=== PATIENT | female | born 1960 | race Caucasian/White ===

== ENCOUNTER 2016-11-06 14:35 | Emergency (ER) | payer BC ==
[2016-11-06] MEDS ORDERED: LORazepam 2 MG/ML SYRINGE IV STA (15:35)
[2016-11-06] MEDS ORDERED: hydrALAZINE HCL 20 MG/ML 1 ML VIAL IVP STA (15:35)
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
[2016-11-06 15:47] LABS: Basophils # (A) 0.1 k/uL (0-0.2); Basophils % (A) 1 %; CH 31.7; CHCM 33.4; Eosinophils # (A) 0.3 k/uL (0-0.7); Eosinophils % (A) 3 %; HDW 2.38; HGB 15.5 gm/dL (11.4-16.0); Luc % (Auto) 3; Lymphocytes # (A) 2.2 k/uL (1.0-4.8); Lymphocytes % (A) 28 %; MCH 31.5 pg (25.0-35.0); MCHC 33.1 g/dL (31.0-37.0); MCV 95.3 fL (80.0-100.0); Mean Platelet Volume 7.3; Monocytes # (A) 0.4 k/uL (0-1.0); Monocytes % (A) 4 %; Neutrophils # (A) 4.9 k/uL (1.3-7.7); Neutrophils % (A) 62 %; RBC 4.93 m/uL (3.80-5.40); RDW 12.7 % (11.5-15.5); WBC (Perox) 7.92
[2016-11-06 15:56] LABS: ALT 22 U/L (9-52); AST 21 U/L (14-36); Alkaline Phosphatase 91 U/L (38-126); Anion Gap 13 mmol/L; Blood Urea Nitrogen 14 mg/dL (7-17); Calcium 10.2 mg/dL (8.4-10.2); Carbon Dioxide 26 mmol/L (22-30); Chloride 104 mmol/L (98-107); Glucose 100 mg/dL (74-99); Magnesium 2.1 mg/dL (1.6-2.3); Non-African American GFR(MDRD) >60 (>60 ml/min/1.73 sqM); Potassium 4.2 mmol/L (3.5-5.1); Sodium 143 mmol/L (137-145); Total Bilirubin 0.6 mg/dL (0.2-1.3); Total Protein 8.5 g/dL (6.3-8.2)
[2016-11-06 15:57] LABS: INR 1.1 (<1.1); Partial Thromboplastin Time 24.5 sec (22.0-30.0); Prothrombin Time 10.9 sec (9.0-12.0)
[2016-11-06 16:07] LABS: Creatine Kinase 55 U/L (30-135)
[2016-11-06 16:07] LABS: Appearance,Urine Clear (Clear); Bilirubin,Urine Negative (Negative); Glucose,Urine (UA) Negative (Negative); Ketones,Urine Trace (Negative); Leukocyte Esterase,Urine Negative (Negative); Nitrite,Urine Negative (Negative); Protein,Urine Negative (Negative); Specific Gravity,Urine 1.004 (1.001-1.035); UA Billing (MACRO vs. MICRO) CHEM; Urobilinogen,Urine <2.0 mg/dL (<2.0)
[2016-11-06 16:21] LABS: Creatine Kinase MB 0.7 ng/mL (0.0-2.4); Troponin I <0.012 ng/mL (0.000-0.034)
--- NOTE | 2016-11-06 16:26 | XR ---
EXAMINATION TYPE: XR chest 2V DATE OF EXAM: 11/06/2016 4:07 PM COMPARISON: 02/15/2012 HISTORY: Shortness of breath TECHNIQUE: Frontal and lateral views of the chest are obtained. FINDINGS: Scattered senescent parenchymal changes noted. Hyperinflation compatible with COPD. No evidence for infiltrate. No evidence for atelectasis. Heart size is stable. Mediastinal structures are stable and grossly unremarkable. No evidence for hilar prominence. Degenerative changes dorsal spine. IMPRESSION: 1. No evidence for acute pulmonary disease.
[2016-11-06 17:34] VITALS: BP 153/78; PULSE 78; RESP 16; TEMP 97.8
== END 2016-11-06 17:31 | disposition home or self-care (01) ==
LOC: EC 14:35
DX: J32.9 Chronic sinusitis, unspecified (principal); R19.7 Diarrhea, unspecified; R10.9 Unspecified abdominal pain; F17.200 Nicotine dependence, unspecified, uncomplicated; Z79.899 Other long term (current) drug therapy; Z88.2 Allergy status to sulfonamides
CPT/HCPCS: 99284; 96374; 96375; 36415; 93005; 80053; 82550; 82553; 83735; 84484; 85025; 85610; 85730; 81003; 71020; J2060; J0360

== ENCOUNTER 2016-11-29 09:39 | Observation (INO) | payer BC ==
[2016-11-29] MEDS ORDERED: ASPIRIN 325 MG TAB PO STA (10:34)
[2016-11-29] MEDS ORDERED: SODIUM CHLORIDE 0.9% 1,000 ML IV ONE (10:34)
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
[2016-11-29 11:34] LABS: Appearance,Urine Clear (Clear); Bilirubin,Urine Negative (Negative); Glucose,Urine (UA) Negative (Negative); Ketones,Urine Negative (Negative); Leukocyte Esterase,Urine Negative (Negative); Nitrite,Urine Negative (Negative); Protein,Urine Negative (Negative); Specific Gravity,Urine 1.004 (1.001-1.035); UA Billing (MACRO vs. MICRO) CHEM; Urobilinogen,Urine <2.0 mg/dL (<2.0)
[2016-11-29 11:36] LABS: Basophils % (A) 1 %; CH 31.3; CHCM 33.1; Eosinophils # (A) 0.2 k/uL (0-0.7); Eosinophils % (A) 3 %; HCT 48.4 % (34.0-46.0); HDW 2.28; HGB 15.9 gm/dL (11.4-16.0); Luc # (Auto) 0.18; Luc % (Auto) 3; Lymphocytes # (A) 1.6 k/uL (1.0-4.8); Lymphocytes % (A) 25 %; MCH 31.2 pg (25.0-35.0); MCHC 32.8 g/dL (31.0-37.0); MCV 95.2 fL (80.0-100.0); Mean Platelet Volume 6.6; Monocytes # (A) 0.4 k/uL (0-1.0); Monocytes % (A) 6 %; Neutrophils # (A) 3.9 k/uL (1.3-7.7); Neutrophils % (A) 62 %; RBC 5.08 m/uL (3.80-5.40); RDW 12.2 % (11.5-15.5); WBC 6.3 k/uL (3.8-10.6); WBC (Perox) 6.11
--- NOTE | 2016-11-29 11:49 | XR ---
EXAMINATION TYPE: XR chest 2V DATE OF EXAM: 11/29/2016 11:45 AM COMPARISON: Chest x-ray November 06, 2016. HISTORY: Hypertension with chest pain. TECHNIQUE: Frontal and lateral views of the chest are obtained. FINDINGS: There is no focal air space opacity, pleural effusion, or pneumothorax seen. The cardiac silhouette size is within normal limits. The osseous structures are intact. IMPRESSION: No acute process. No significant change from prior.
[2016-11-29 11:58] LABS: ALT 21 U/L (9-52); AST 19 U/L (14-36); Alkaline Phosphatase 80 U/L (38-126); Anion Gap 10 mmol/L; Blood Urea Nitrogen 13 mg/dL (7-17); Calcium 9.9 mg/dL (8.4-10.2); Carbon Dioxide 27 mmol/L (22-30); Chloride 105 mmol/L (98-107); Glucose 88 mg/dL (74-99); Non-African American GFR(MDRD) >60 (>60 ml/min/1.73 sqM); Potassium 5.1 mmol/L (3.5-5.1); Sodium 142 mmol/L (137-145); Total Bilirubin 0.6 mg/dL (0.2-1.3); Total Protein 7.4 g/dL (6.3-8.2)
[2016-11-29 12:50] VITALS: RESP 18
[2016-11-29] MEDS ORDERED: MORPHINE SULFATE 4 MG/ML SYRINGE IV PRN (13:51)
[2016-11-29] MEDS ORDERED: ONDANSETRON 4 MG/2 ML VIAL IVP PRN (13:51)
[2016-11-29] MEDS ORDERED: NALOXONE 0.4 MG/ML 1 ML VIAL IV PRN (13:51)
[2016-11-29] MEDS: KETOROLAC 30 MG/ML 1 ML VIAL IVP PRN ×2 (14:28→23:40)
[2016-11-29] MEDS ORDERED: HYDROcodone/APAP 5-325MG 1 EACH TAB PO PRN (16:05)
[2016-11-29] MEDS ORDERED: TEMAZEPAM 15 MG CAP PO PRN (16:05)
[2016-11-29] MEDS: METOPROLOL TARTRATE 12.5 MG TAB PO SCH ×2 (17:18→23:41)
[2016-11-29] MEDS: NICOTINE 14MG/24HR PATCH TRANSDERM SCH (17:24)
--- NOTE | 2016-11-29 19:28 | HP ---
DATE OF ADMISSION: 11/29/2016 CHIEF COMPLAINT: Palpitations, hypertension. HISTORY OF PRESENT ILLNESS: This 56-year-old woman with a past medical history of multiple medical problems, including hypertension, history of cervical cancer, history of DJD, anxiety, depression, being followed by Dr. Calix in the outpatient setting, was not feeling well over the past several days. The patient is complaining of tiredness, weakness and palpitations. The patient felt chest fullness, also. The patient came to [facility] and was admitted for further evaluation. Patient was also found to have elevated blood pressure; systolic was 172/77. There is no history of any fever, rigor, or chills at this time. PAST MEDICAL HISTORY: 1. History of hypertension. 2. History of cervical cancer. 3. History of DJD. 4. Anxiety. 5. Depression. Medications prior to admission include: 1. Prozac 10 mg daily. 2. Coreen 180 mg daily. ALLERGIES: 1. BACTRIM. 2. SULFA. FAMILY HISTORY: History of hypertension in father. History of cardiac stent in mother. SOCIAL HISTORY: Occasional alcohol intake. History of smoking. REVIEW OF SYSTEMS: ENT: No diminished vision. No diminished hearing. CARDIOVASCULAR: As mentioned earlier. RESPIRATORY: As mentioned earlier. GI: No nausea. : No dysuria. NERVOUS SYSTEM: No numbness, weakness. ALLERGY/IMMUNOLOGY: No asthma, hayfever. MUSCULOSKELETAL: As mentioned earlier. HEMATOLOGY/ONCOLOGY: No history of anemia. Otherwise as mentioned earlier. ENDOCRINE: No history of diabetes, hypothyroidism. CONSTITUTIONAL: As mentioned earlier. MUSCULOSKELETAL: Negative. ENDOCRINE: No diabetes mellitus. PSYCHIATRY: As mentioned earlier. PHYSICAL EXAMINATION: Patient alert and oriented x3. Pulse is 60, blood pressure 164/76, respiration 18, temperature 98.7, pulse ox 100% on room air. HEENT: Conjunctivae normal. Oral mucosa moist. NECK: No jugular venous distention. No carotid bruit. No lymph node enlargement. CARDIOVASCULAR SYSTEM: S1, S2 muffled. No S3. No S4. RESPIRATORY SYSTEM: Breath sounds diminished at the bases. A few rhonchi. No crackles. ABDOMEN: Soft, non-tender. No mass palpable. LEGS: No edema. No swelling. NERVOUS SYSTEM: Higher functions as mentioned earlier. Moves all 4 limbs. No focal motor or sensory deficit. LYMPHATICS: No lymph node palpable in neck, axillae or groin. SKIN: No ulcer, rash, bleeding. LABS: CBC, BMP within normal limits. UA is negative. ASSESSMENT: 1. Hypertension. 2. Palpitations and chest discomfort for evaluation. 3. Anxiety, depression not otherwise specified. 4. History of degenerative joint disease. 5. History of hypertension. 6. History of cervical cancer. 7. History of nicotine dependence. RECOMMENDATIONS AND DISCUSSION: In this 56-year-old woman who presented with multiple complex medical issues, at this time I recommend to continue current medications, continue symptomatic treatment. I recommend beta blockers. Closely follow with Cardiology. Otherwise, guarded prognosis because of multiple complex medical issues. Further recommendations to follow. I would also recommend a psychiatric consult. I would also recommend the patient to follow up closely with Dr. Calix in the outpatient setting. Medication reconciliation was done. Please see orders for further details.
[2016-11-29] MEDS: HEPARIN SODIUM,PORCINE 5,000 UNIT/ML 1 ML VIAL SQ SCH (22:03)
[2016-11-29] MEDS: ALPRAZolam 0.25 MG TAB PO PRN (23:40)
[2016-11-30 07:07] LABS: Basophils # (A) 0.1 k/uL (0-0.2); Basophils % (A) 1 %; CH 31.2; CHCM 32.9; Eosinophils # (A) 0.4 k/uL (0-0.7); Eosinophils % (A) 7 %; HCT 42.5 % (34.0-46.0); HGB 13.9 gm/dL (11.4-16.0); Luc # (Auto) 0.22; Luc % (Auto) 4; Lymphocytes # (A) 2.8 k/uL (1.0-4.8); Lymphocytes % (A) 48 %; MCH 31.2 pg (25.0-35.0); MCHC 32.7 g/dL (31.0-37.0); MCV 95.2 fL (80.0-100.0); Monocytes # (A) 0.3 k/uL (0-1.0); Monocytes % (A) 5 %; Neutrophils % (A) 35 %; RBC 4.46 m/uL (3.80-5.40); RDW 12.3 % (11.5-15.5); WBC 5.8 k/uL (3.8-10.6); WBC (Perox) 5.83
[2016-11-30 07:24] LABS: Anion Gap 7 mmol/L; Blood Urea Nitrogen 11 mg/dL (7-17); Calcium 9.3 mg/dL (8.4-10.2); Carbon Dioxide 25 mmol/L (22-30); Chloride 108 mmol/L (98-107); Cholesterol 157 mg/dL (<200); Glucose 80 mg/dL (74-99); HDL Cholesterol 62 mg/dL (40-60); Non-African American GFR(MDRD) >60 (>60 ml/min/1.73 sqM); Potassium 4.9 mmol/L (3.5-5.1); Sodium 140 mmol/L (137-145); Triglycerides 79 mg/dL (<150)
[2016-11-30] MEDS: NICOTINE 14MG/24HR PATCH TRANSDERM SCH (08:26)
[2016-11-30] MEDS: LORATADINE 10 MG TAB PO SCH (08:27)
[2016-11-30] MEDS: METOPROLOL TARTRATE 12.5 MG TAB PO SCH ×2 (08:27→21:48)
[2016-11-30] MEDS: HEPARIN SODIUM,PORCINE 5,000 UNIT/ML 1 ML VIAL SQ SCH ×2 (08:27→21:48)
[2016-11-30] MEDS ORDERED: FLUoxetine HCL 10 MG CAP PO SCH (09:00)
[2016-11-30 09:43] VITALS: BMI 21.5
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
[2016-11-30] MEDS: ALPRAZolam 0.25 MG TAB PO PRN (21:48)
[2016-11-30] MEDS: KETOROLAC 30 MG/ML 1 ML VIAL IVP PRN (22:54)
[2016-12-01] MEDS: NICOTINE 14MG/24HR PATCH TRANSDERM SCH (07:49)
[2016-12-01] MEDS: LORATADINE 10 MG TAB PO SCH (07:50)
[2016-12-01] MEDS: HEPARIN SODIUM,PORCINE 5,000 UNIT/ML 1 ML VIAL SQ SCH (07:50)
[2016-12-01] MEDS: METOPROLOL TARTRATE 12.5 MG TAB PO SCH (07:50)
[2016-12-01] MEDS ORDERED: ESCITALOPRAM 10 MG TAB PO SCH (09:00)
--- NOTE | 2016-12-01 09:39 | PN ---
DATE OF SERVICE: 11/30/2016 This 56-year-old woman who was admitted with palpitations and hypertension also had some significant depression also. Cardiology is following the patient closely. Medication adjusted. 2D echo has been ordered. Patient is on low dose beta blockers. On exam, alert and oriented times three. Pulse 61. Blood pressure 130/78, respiratory rate 18, temperature 97.0, pulse ox 98% on room air. HEENT: Conjunctivae normal. NECK: No jugular venous distention. CARDIOVASCULAR: S1, S2 muffled. RESPIRATORY: Breath sounds diminished at the bases. No rhonchi, no crackles. ABDOMEN: Soft. Nontender. LEGS: No edema. No swelling. Labs are CBC within normal limits, CMP with 62. ASSESSMENT: 1. Hypertension. 2. Palpitations and chest discomfort for evaluation rule out coronary artery disease. 3. Anxiety, depression, not otherwise specified. 4. History of degenerative joint disease. 5. Hypertension. 6. History of cervical cancer. 7. History of nicotine dependence. RECOMMENDATIONS AND DISCUSSION: At this time, recommend to continue current medications. Continue to monitor. Symptomatic treatment. Otherwise, closely follow up. Continue the beta blockers. Closely follow with cardiology and psychiatric evaluation appreciated. CELINE
[2016-12-01 13:16] VITALS: BP 117/61; PULSE 55; TEMP 97.1
--- NOTE | 2016-12-01 14:16 | P.PN ---
Progress Note - Text Interval history: Patient was seen for psychiatric follow-up ,was laying in her bed . She states that she is less anxious ,hoping to be discharged soon , discussed healthy coping skills to deal with ongoing stressor Mental status exam: She is alert and cooperative with the interview. Her affect is appropriate ,smiling at times Her speech is spontaneous and coherent Her mood is BETTER""She denies any thoughts of harm to self or others. She denies any hallucinations. There is no evidence of any active psychosis or wily,insight and judgment good Plan: Continue current medication ,was referred to her therapist at [facility] ,please discharge when medically cleared
--- NOTE | 2016-12-01 15:02 | P.PN ---
Subjective Principal diagnosis: Palpitations This is a pleasant 56-year-old female patient with past medical history of pre- eclampsia during her first , anxiety and depression for which she was recently started on fluoxetine, cervical cancer and recent diagnosis of hypertension for which she has not been prescribed any antihypertensive agents. Was seen in the emergency department earlier this month and noted to be hypertensive. He has not been on any medication for hypertension. Presents for complaints of high blood pressure, palpitations, weakness, fatigue, change in bowel movements with alternating constipation and diarrhea. Blood pressure upon presentation to the emergency room 160s to 190 systolic. EKG on admission showed normal sinus rhythm. Patient continues to be in normal sinus rhythm. Blood pressure today is stable. TSH level is normal. Arrangements are being made for possible discharge home, echocardiogram with Doppler study remains pending. When the patient is discharged home we will recommend an event monitor as an outpatient. Objective - Vital Signs Vital signs: Vital Signs Temp 97.1 F L 12/01/16 11:00 Pulse 55 L 12/01/16 11:00 Resp 18 12/01/16 11:00 BP 117/61 12/01/16 11:00 Pulse Ox 98 12/01/16 11:00 Intake & Output 11/30/16 12/01/16 12/01/16 18:59 06:59 18:59 Intake Total 480 800 922 Balance 480 800 922 Weight 53.4 kg 51.5 kg Intake: Oral 480 800 922 Other: Voiding Method Toilet Toilet Toilet # Voids 1 - Exam PHYSICAL EXAMINATION: HEENT: Head is atraumatic, normocephalic. Pupils equal, round. Neck is supple. There is no elevated jugular venous pressure. HEART EXAMINATION: Heart S1, S2 normal. No murmur or gallop heard. CHEST EXAMINATION: Lungs are clear to auscultation and precussion. No chest wall tenderness is noted on palpation or with deep breathing. ABDOMEN: Soft, nontender. Bowel sounds are heard. No organomegaly noted. EXTREMITIES: 2+ peripheral pulses with no evidence of peripheral edema and no calf tenderness noted. NEUROLOGIC patient is awake, alert and oriented -3. . - Labs CBC & Chem 7: 11/30/16 06:36 11/30/16 06:34 Assessment and Plan Plan: Assessment and Plan Plan: Assessment and plan #1 hypertension #2 palpitations #3 recent change in bowel movements with alternating constipation and diarrhea and 5 pound weight loss, PCP is scheduling patient for a colonoscopy #4 anxiety and depression, recently started on fluoxetine #5 history of cervical cancer Plan Cardiology's perspective, patient may be able to be discharged once cleared by the primary. We will recommend an event monitor on discharge. A follow-up appointment will also be made in the office post discharge. DNP note has been reviewed, I agree with a documented findings and plan of care. Patient was seen and examined.
--- NOTE | 2016-12-01 17:20 | DS ---
DATE OF ADMISSION: 11/29/2016 DATE OF DISCHARGE: 12/01/2016 FINAL DIAGNOSES: 1. Hypertension. 2. Palpations chest, myocardial infarction ruled out, rule out coronary artery disease. 3. Anxiety, depression, not otherwise specified. 4. History of degenerative joint disease . 5. History of hypertension. 6. History of cervical cancer. 7. History of nicotine dependence. DISCHARGE DISPOSITION: The patient will be discharged in a stable discharge with guarded prognosis. Discharge cleared by multiple consultants. HISTORY OF PRESENT ILLNESS: This 56-year-old woman with a past medical history of multiple medical problems, admitted with hypertension, palpitations. The patient was treated symptomatically, myocardial infarction ruled out, cardiology recommended outpatient follow-up and Dr. Ku from psych also saw the patient. On exam, vital signs stable. CARDIOVASCULAR: S1, S2. CENTRAL NERVOUS SYSTEM: No focal deficits. ABDOMEN: Soft. DISCHARGE MEDICATIONS AND DISCHARGE ADVICE: 1. Diet is cardiac. 2. Activity limited until follow-up. 3. Follow up with Dr. Calix in 2 to 3 days. 4. Follow-up with Dr. Null as advised in the outpatient setting. 5. Medications Xanax 0.25 t.i.d. p.r.n. 6. Tylenol 500 mg q.6 p.r.n. for pain. 7. Lexapro 10 mg p.o. daily. 8. Fexofenadine 180 mg p.o. daily. 9. Lopressor 12.5 mg p.o. b.i.d. 10. Habitrol 14 daily. Once again, the patient will be discharged in stable condition with guarded prognosis.
--- NOTE | 2016-12-02 11:31 | ECHOF ---
Referral Reason:palpitations MEASUREMENTS -------- HEIGHT: 157.5 cm WEIGHT: 53.1 kg BP: 123/60 RVIDd: 2.8 cm (< 3.3) IVSd: 1.1 cm (0.6 - 1.1) LVIDd: 3.7 cm (3.9 - 5.3) LVPWd: 1.1 cm (0.6 - 1.1) IVSs: 1.5 cm LVIDs: 2.6 cm LVPWs: 1.4 cm LA Diam: 2.6 cm (2.7 - 3.8) LAESV Index (A-L): 21.31 ml/m Ao Diam: 2.8 cm (2.0 - 3.7) AV Cusp: 1.8 cm (1.5 - 2.6) MV EXCURSION: 14.946 mm (> 18.000) MV EF SLOPE: 120 mm/s (70 - 150) EPSS: 0.4 cm MV E Zaheer: 0.99 m/s MV DecT: 175 ms MV A Zaheer: 0.76 m/s MV E/A Ratio: 1.31 FINDINGS -------- Sinus rhythm. This was a technically good study. The left ventricular size is normal. Left ventricular wall thickness is normal. Overall left ventricular systolic function is normal with, an EF between 55 - 60 %. The right ventricle is normal in size. Normal LA size by volume 22+/-6 ml/m2. The right atrium is normal in size. The aortic valve is trileaflet and appears structurally normal. The mitral valve is normal. Mild mitral regurgitation is present. The tricuspid valve appears structurally normal. No regurgitation noted There is no pulmonic regurgitation present. The aortic root size is normal. Normal inferior vena cava with normal inspiratory collapse consistent with estimated right atrial pressure of 5 mmHg. There is no pericardial effusion. CONCLUSIONS -------- 1. Sinus rhythm. 2. Normal inferior vena cava with normal inspiratory collapse consistent with estimated right atrial pressure of 5 mmHg. 3. There is no pericardial effusion. 4. This was a technically good study. 5. Left ventricular wall thickness is normal. 6. Normal LA size by volume 22+/-6 ml/m2. 7. The aortic valve is trileaflet and appears structurally normal. 8. Mild mitral regurgitation is present. 9. The tricuspid valve appears structurally normal. 10. There is no pulmonic regurgitation present. 11. The aortic root size is normal. BOARD CERTIFIED ORTHODONTIST: Izabel Dash RDCS
== END 2016-12-01 15:58 | disposition home or self-care (01) ==
LOC: EC 09:39 → 6SEL 13:51
PROVIDERS: ADMIT Internal Medicine; ATTEND Internal Medicine
DX: I10 Essential (primary) hypertension (principal); R00.2 Palpitations; R07.89 Other chest pain; K59.00 Constipation, unspecified; R19.7 Diarrhea, unspecified; R63.4 Abnormal weight loss; F32.9 Major depressive disorder, single episode, unspecified; Z79.899 Other long term (current) drug therapy; Z88.2 Allergy status to sulfonamides; F17.200 Nicotine dependence, unspecified, uncomplicated; Z82.49 Family history of ischemic heart disease and other diseases of the circulatory system; Z85.41 Personal history of malignant neoplasm of cervix uteri; F41.0 Panic disorder [episodic paroxysmal anxiety]; M19.90 Unspecified osteoarthritis, unspecified site; R09.81 Nasal congestion; R35.0 Frequency of micturition; R53.1 Weakness; F43.29 Adjustment disorder with other symptoms
CPT/HCPCS: 96374 ×2; 96361 ×2; 99284 ×2; 36415; 93005; 93306; 83880; 80061; 80053; 80048; 84443; 83690; 84484 ×2; 85025 ×2; 81003; 80306; 87502; 71020; G0378 ×3; J1644 ×3; J1885 ×2; 96372; 96376

== ENCOUNTER → 2016-12-02 | Outpatient (CLI) | payer BC ==
--- NOTE | 2016-12-03 09:39 | MM ---
Reason for exam: screening (asymptomatic). Last mammogram was performed 2 years and 9 months ago. History: Patient is postmenopausal. Physical Findings: A clinical breast exam by your physician is recommended on an annual basis and results should be correlated with mammographic findings. MG Screening Mammo w CAD Bilateral CC and MLO view(s) were taken. Prior study comparison: March 14, 2014, bilateral MG screening mammo w CAD. The breast tissue is heterogeneously dense. This may lower the sensitivity of mammography. Finding: There are typically benign calcifications in both breasts. There is a chronic nodularity in the right breast. ASSESSMENT: Benign, BI-RAD 2 RECOMMENDATION: Routine screening mammogram of both breasts in 1 year.
== END | disposition home or self-care (01) ==
LOC: RADECHMAIN 13:02
PROVIDERS: ATTEND Family Medicine
DX: Z12.31 Encounter for screening mammogram for malignant neoplasm of breast (principal)
CPT/HCPCS: 93225; 93226; G0202

== ENCOUNTER 2018-06-20 23:14 | Emergency (ER) | payer BC ==
[2018-06-20 23:27] VITALS: TEMP 97.7
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
--- NOTE | 2018-06-20 23:59 | XR ---
EXAMINATION TYPE: XR chest 2V DATE OF EXAM: 06/20/2018 COMPARISON: 11/29/2016 HISTORY: Hypertension and headache TECHNIQUE: Frontal and lateral views of the chest are obtained. FINDINGS: Heart and mediastinum are normal. Lungs are clear. Diaphragm is normal. Bony thorax appear s normal. IMPRESSION: Normal chest. No change.
[2018-06-21] MEDS ORDERED: cloNIDine HCL 0.1 MG TAB PO STA (00:04)
[2018-06-21 00:07] VITALS: RESP 16
[2018-06-21 00:12] LABS: Appearance,Urine Clear (Clear); Basophils # (A) 0.1 k/uL (0-0.2); Basophils % (A) 1 %; Bilirubin,Urine Negative (Negative); Blood,Urine Negative (Negative); Color,Urine Colorless; Eosinophils # (A) 0.4 k/uL (0-0.7); Eosinophils % (A) 6 %; Glucose,Urine (UA) Negative (Negative); HCT 45.5 % (34.0-46.0); HGB 14.9 gm/dL (11.4-16.0); Ketones,Urine Negative (Negative); Leukocyte Esterase,Urine Negative (Negative); Lymphocytes # (A) 2.8 k/uL (1.0-4.8); Lymphocytes % (A) 39 %; MCH 30.6 pg (25.0-35.0); MCHC 32.6 g/dL (31.0-37.0); MCV 93.8 fL (80.0-100.0); Monocytes # (A) 0.4 k/uL (0-1.0); Monocytes % (A) 6 %; Neutrophils # (A) 3.4 k/uL (1.3-7.7); Neutrophils % (A) 48 %; Nitrite,Urine Negative (Negative); Platelet Count 256 k/uL (150-450); Protein,Urine Negative (Negative); RBC 4.85 m/uL (3.80-5.40); RDW 13.2 % (11.5-15.5); Specific Gravity,Urine 1.002 (1.001-1.035); Urobilinogen,Urine <2.0 mg/dL (<2.0); WBC 7.2 k/uL (3.8-10.6)
[2018-06-21 00:23] LABS: ALT 21 U/L (9-52); AST 19 U/L (14-36); Albumin 3.9 g/dL (3.5-5.0); Alkaline Phosphatase 74 U/L (38-126); Anion Gap 10 mmol/L; Blood Urea Nitrogen 14 mg/dL (7-17); Calcium 9.4 mg/dL (8.4-10.2); Carbon Dioxide 23 mmol/L (22-30); Chloride 108 mmol/L (98-107); Glucose 88 mg/dL (74-99); Potassium 3.7 mmol/L (3.5-5.1); Sodium 141 mmol/L (137-145); Total Bilirubin 0.3 mg/dL (0.2-1.3); Total Protein 6.9 g/dL (6.3-8.2)
[2018-06-21 01:22] VITALS: BP 160/82; PULSE 70
== END 2018-06-21 01:21 | disposition home or self-care (01) ==
LOC: EC 23:14
DX: I10 Essential (primary) hypertension (principal); R09.81 Nasal congestion; J34.89 Other specified disorders of nose and nasal sinuses; Z91.048 Other nonmedicinal substance allergy status; F17.200 Nicotine dependence, unspecified, uncomplicated; Z88.2 Allergy status to sulfonamides; Z79.899 Other long term (current) drug therapy; Z82.49 Family history of ischemic heart disease and other diseases of the circulatory system
CPT/HCPCS: 36415; 71046; 80053; 81003; 84484; 85025; 93005; 99283

== ENCOUNTER 2018-12-07 00:18 | Emergency (ER) | payer BC ==
[2018-12-07] MEDS ORDERED: SODIUM CHLORIDE 0.9% 500 ML 500 ML IV STA (00:40)
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
[2018-12-07 01:07] LABS: Basophils # (A) 0.1 k/uL (0-0.2); Basophils % (A) 1 %; Eosinophils # (A) 0.4 k/uL (0-0.7); Eosinophils % (A) 5 %; HCT 40.8 % (34.0-46.0); HGB 13.7 gm/dL (11.4-16.0); Lymphocytes # (A) 3.3 k/uL (1.0-4.8); Lymphocytes % (A) 47 %; MCH 31.5 pg (25.0-35.0); MCHC 33.6 g/dL (31.0-37.0); MCV 93.8 fL (80.0-100.0); Mean Platelet Volume 7.2; Monocytes # (A) 0.4 k/uL (0-1.0); Monocytes % (A) 5 %; Neutrophils # (A) 2.8 k/uL (1.3-7.7); Neutrophils % (A) 39 %; Platelet Count 235 k/uL (150-450); RBC 4.35 m/uL (3.80-5.40); RDW 13.3 % (11.5-15.5); WBC 7.1 k/uL (3.8-10.6)
[2018-12-07 01:16] LABS: ALT 20 U/L (9-52); AST 21 U/L (14-36); Albumin 4.2 g/dL (3.5-5.0); Alkaline Phosphatase 78 U/L (38-126); Anion Gap 11 mmol/L; Blood Urea Nitrogen 11 mg/dL (7-17); Calcium 9.7 mg/dL (8.4-10.2); Carbon Dioxide 24 mmol/L (22-30); Chloride 108 mmol/L (98-107); Glucose 106 mg/dL (74-99); Potassium 3.6 mmol/L (3.5-5.1); Sodium 143 mmol/L (137-145); Total Bilirubin 0.2 mg/dL (0.2-1.3); Total Protein 7.2 g/dL (6.3-8.2)
--- NOTE | 2018-12-07 01:29 | XR ---
EXAM: XR Chest, 1 View CLINICAL HISTORY: ITS.REASON XR Reason: dysrhythmia TECHNIQUE: Frontal view of the chest. COMPARISON: Chest x-ray dated 07/14/2018. FINDINGS: Lungs: Unremarkable. The lungs are clear. Pleural space: Unremarkable. No pneumothorax. Heart: Unremarkable. No cardiomegaly. Mediastinum: Unremarkable. Bones/joints: Reidentified healed posterior left rib fractures. IMPRESSION: No acute findings.
[2018-12-07 03:06] VITALS: BP 141/83; PULSE 81; RESP 20; TEMP 98.1
== END 2018-12-07 03:19 | disposition home or self-care (01) ==
LOC: EC 00:18
DX: R00.2 Palpitations (principal); R00.0 Tachycardia, unspecified; I10 Essential (primary) hypertension; F41.9 Anxiety disorder, unspecified; F17.200 Nicotine dependence, unspecified, uncomplicated; Z88.2 Allergy status to sulfonamides; Z79.899 Other long term (current) drug therapy; Z82.49 Family history of ischemic heart disease and other diseases of the circulatory system
CPT/HCPCS: 36415; 71045; 80053; 83735; 84443; 84484; 85025; 93005; 96360; 96361; 99285

== ENCOUNTER 2020-09-07 16:59 | Emergency (ER) | payer BC, MEDICAID ==
[2020-09-07 17:10] VITALS: PULSE 88; RESP 18; TEMP 98.1
[2020-09-07] MEDS ORDERED: PROPARACAINE 0.5% OPHTH DROPS 15 ML BTL LEFT EYE STA (17:17)
[2020-09-07] MEDS ORDERED: DIPH,PERTUS(ACELL)TETVAC-LF 0.5 ML VIAL IM ONE (17:17)
[2020-09-07] MEDS ORDERED: ERYTHROMYCIN 5 MG/GM OPHTH OINT 3.5 GM TUBE LEFT EYE STA (17:18)
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
[2020-09-07] MEDS ORDERED: HYDROcodone/APAP 5-325MG 1 EACH TAB PO STA (18:38)
[2020-09-07 18:49] VITALS: BP 159/97
== END 2020-09-07 18:40 | disposition home or self-care (01) ==
LOC: EC 16:59
DX: T15.02XA Foreign body in cornea, left eye, initial encounter (principal); I10 Essential (primary) hypertension; F17.200 Nicotine dependence, unspecified, uncomplicated; Z23 Encounter for immunization; Z79.899 Other long term (current) drug therapy; Z88.1 Allergy status to other antibiotic agents; Z88.2 Allergy status to sulfonamides; X58.XXXA Exposure to other specified factors, initial encounter
CPT/HCPCS: 65220; 90471; 90715; 99283

== ENCOUNTER → 2020-11-07 | Outpatient (CLI) | payer OTHER ==
--- NOTE | 2020-11-07 10:57 | XR ---
Lumbar spine HISTORY: Strain or muscle, back pain 3 views the lumbar spine There is multilevel spondylosis. There is a spinal curvature which is S-shaped. Lumbar vertebral bodi es show preserved height and bone mineralization is mildly reduced. Loss of disc height is present at L5-S1, L1-2. Sclerosis is present in the posterior elements. Atherosclerotic vascular calcifications are noted in the aorta. IMPRESSION: Degenerative disc disease, facet arthropathy, spinal curvature, osteopenia.
== END ==
LOC: RADXRMAIN 10:20
PROVIDERS: ATTEND Emergency Medicine
DX: M51.36 Other intervertebral disc degeneration, lumbar region (principal); M47.816 Spondylosis without myelopathy or radiculopathy, lumbar region; M43.8X6 Other specified deforming dorsopathies, lumbar region; M85.88 Other specified disorders of bone density and structure, other site
CPT/HCPCS: 72100

== ENCOUNTER → 2020-12-14 | Outpatient (CLI) | payer MEDICAID ==
[2020-12-14 22:15] LABS: Chol/HDL Ratio 3.88; LDL Cholesterol,Calculated 134.6 mg/dL (0.0-131.0); VLDL Calculation 26.4 mg/dL (5.00-40.00)
== END | disposition home or self-care (01) ==
LOC: LABWHC1 13:15
PROVIDERS: ATTEND Internal Medicine
DX: E78.5 Hyperlipidemia, unspecified (principal)
CPT/HCPCS: 36415; 80061

== ENCOUNTER 2022-05-25 16:40 | Emergency (ER) | payer MEDICAID, BC ==
[2022-05-25 17:12] VITALS: TEMP 98
--- NOTE | 2022-05-25 17:49 | XR ---
EXAMINATION TYPE: XR KUB DATE OF EXAM: 05/25/2022 COMPARISON: NONE HISTORY: Pain TECHNIQUE: 2 views upright FINDINGS: There is no sign of intestinal obstruction or pneumoperitoneum. Fecal pattern is normal. No sign of a mass. No pathologic calcification. IMPRESSION: Nonacute abdomen.
[2022-05-25] MEDS ORDERED: ONDANSETRON 4 MG/2 ML VIAL IVP STA (18:46)
[2022-05-25] MEDS ORDERED: MORPHINE SULFATE 4 MG/ML SYRINGE IV STA (18:46)
[2022-05-25] MEDS ORDERED: FAMOTIDINE 20 MG/2 ML VIAL IV STA (18:46)
[2022-05-25] MEDS ORDERED: SODIUM CHLORIDE 0.9% 500 ML 500 ML IV STA (18:46)
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
[2022-05-25 18:59] LABS: Appearance,Urine Clear (Clear); Bilirubin,Urine Negative (Negative); Blood,Urine Negative (Negative); Color,Urine Light Yellow; Glucose,Urine (UA) Negative (Negative); Ketones,Urine Negative (Negative); Leukocyte Esterase,Urine Negative (Negative); Nitrite,Urine Negative (Negative); PH, Urine 5.5 (5.0-8.0); Protein,Urine Negative (Negative); Specific Gravity,Urine 1.005 (1.001-1.035); Urobilinogen,Urine <2.0 mg/dL (<2.0)
[2022-05-25 20:37] LABS: Basophils # (A) 0.1 k/uL (0-0.2); Basophils % (A) 1 %; Eosinophils # (A) 0.2 k/uL (0-0.7); Eosinophils % (A) 3 %; HCT 43.1 % (34.0-46.0); HGB 14.3 gm/dL (11.4-16.0); Lymphocytes % (A) 27 %; MCH 31.8 pg (25.0-35.0); MCHC 33.2 g/dL (31.0-37.0); MCV 95.8 fL (80.0-100.0); Mean Platelet Volume 7.5; Monocytes # (A) 0.4 k/uL (0-1.0); Monocytes % (A) 6 %; Neutrophils # (A) 4.5 k/uL (1.3-7.7); Neutrophils % (A) 62 %; Platelet Count 295 k/uL (150-450); WBC 7.3 k/uL (3.8-10.6)
[2022-05-25 20:45] LABS: ALT 18 U/L (4-34); AST 26 U/L (14-36); African American GFR (CKD) >90 (>60 ml/min/1.73 sqM); Albumin 4.5 g/dL (3.5-5.0); Alkaline Phosphatase 91 U/L (38-126); Amylase 72 U/L (30-110); Anion Gap 11 mmol/L; Blood Urea Nitrogen 12 mg/dL (7-17); Calcium 9.7 mg/dL (8.4-10.2); Carbon Dioxide 21 mmol/L (22-30); Chloride 104 mmol/L (98-107); Glucose 101 mg/dL (74-99); Lipase 110 U/L (23-300); Non-African American GFR(CKD) 78 (>60 ml/min/1.73 sqM); Potassium 4.3 mmol/L (3.5-5.1); Sodium 136 mmol/L (137-145); Total Bilirubin 0.3 mg/dL (0.2-1.3); Total Protein 7.3 g/dL (6.3-8.2)
[2022-05-25 20:47] LABS: Partial Thromboplastin Time 23.7 sec (22.0-30.0); Prothrombin Time 10.7 sec (9.0-12.0)
--- NOTE | 2022-05-25 21:14 | CT ---
EXAMINATION TYPE: CT abdomen pelvis w con DATE OF EXAM: 05/25/2022 COMPARISON: None HISTORY: RLQ pain CT DLP: 651.5 mGycm Automated exposure control for dose reduction was used. CONTRAST: Performed with IV Contrast, patient injected with 100 mL of Isovue 300. Images obtained from the diaphragm to the floor the pelvis with IV contrast. Lung bases are clear. No pleural effusion. Heart size is normal. No pericardial effusion. Liver splee n and stomach pancreas appear intact. The bile duct are not dilated. Gallbladder appears normal. There is no adrenal mass. Kidneys show satisfactory contrast opacification. There is no hydronephrosi s. Ureters are not dilated. No retroperitoneal adenopathy. The bladder distends smoothly. No inguinal hernia. No free fluid in the pelvis. Uterus is intact. No pelvic mass. Lumbar vertebra have normal alignment. There is vacuum disc at L5-S1. No compression fracture. The [place] pelvis is intact. The hip joints are intact. There is no mesenteric edema. No ascites or free air. No sign of a bowel obstruction. Appendix is not seen. IMPRESSION: Negative CT scan abdomen and pelvis. Appendix not clearly seen. No sign of thickened appendix.
[2022-05-25] MEDS ORDERED: DICYCLOMINE 10 MG/ML 2 ML AMP IM STA (21:27)
[2022-05-25 21:54] VITALS: BP 159/89; PULSE 71; RESP 16
== END 2022-05-25 21:55 | disposition home or self-care (01) ==
LOC: EC 16:40
DX: R10.31 Right lower quadrant pain (principal); R11.0 Nausea; I10 Essential (primary) hypertension; F17.200 Nicotine dependence, unspecified, uncomplicated; Z79.899 Other long term (current) drug therapy; Z88.2 Allergy status to sulfonamides
CPT/HCPCS: 36415; 80053; 82150; 83690; 85025; 85610; 85730; 81003; 74018; 74177; 99284; 96374; 96375; 96361; 96372; J0500; J2405; Q9967

== ENCOUNTER 2022-11-27 10:35 | Emergency (ER) | payer BC, OTHER ==
[2022-11-27 10:57] VITALS: RESP 18; TEMP 97.5
[2022-11-27 11:47] LABS: Basophils # (A) 0.1 k/uL (0-0.2); Basophils % (A) 1 %; Eosinophils # (A) 0.2 k/uL (0-0.7); Eosinophils % (A) 2 %; HCT 42.5 % (34.0-46.0); HGB 14.9 gm/dL (11.4-16.0); Lymphocytes # (A) 1.6 k/uL (1.0-4.8); Lymphocytes % (A) 18 %; MCH 32.2 pg (25.0-35.0); MCHC 35.1 g/dL (31.0-37.0); Mean Platelet Volume 7.9; Monocytes # (A) 0.4 k/uL (0-1.0); Monocytes % (A) 4 %; Neutrophils # (A) 6.4 k/uL (1.3-7.7); Neutrophils % (A) 73 %; Platelet Count 262 k/uL (150-450); RBC 4.62 m/uL (3.80-5.40); RDW 12.6 % (11.5-15.5); WBC 8.8 k/uL (3.8-10.6)
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
[2022-11-27 12:06] LABS: African American GFR (CKD) >90 (>60 ml/min/1.73 sqM); Anion Gap 8 mmol/L; Blood Urea Nitrogen 16 mg/dL (7-17); Calcium 9.6 mg/dL (8.4-10.2); Carbon Dioxide 24 mmol/L (22-30); Chloride 107 mmol/L (98-107); Glucose 99 mg/dL (74-99); Non-African American GFR(CKD) >90 (>60 ml/min/1.73 sqM); Potassium 4.5 mmol/L (3.5-5.1); Sodium 139 mmol/L (137-145)
[2022-11-27 13:49] VITALS: BP 158/84; PULSE 67
== END 2022-11-27 13:45 | disposition home or self-care (01) ==
LOC: EC 10:35
DX: J32.9 Chronic sinusitis, unspecified (principal); I10 Essential (primary) hypertension; F17.200 Nicotine dependence, unspecified, uncomplicated; Z79.899 Other long term (current) drug therapy; Z88.1 Allergy status to other antibiotic agents; Z88.2 Allergy status to sulfonamides
CPT/HCPCS: 36415; 80048; 85025; 87636; 99285

== ENCOUNTER 2023-01-10 10:35 | Observation (INO) | payer MEDICAID, OTHER ==
[2023-01-10] MEDS ORDERED: KETOROLAC 15 MG/ML 1 ML VIAL IVP STA (10:59)
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
[2023-01-10 11:28] LABS: Basophils % (A) 1 %; Eosinophils # (A) 0.2 k/uL (0-0.7); Eosinophils % (A) 3 %; HCT 43.3 % (34.0-46.0); HGB 14.1 gm/dL (11.4-16.0); Lymphocytes # (A) 1.4 k/uL (1.0-4.8); Lymphocytes % (A) 25 %; MCH 30.8 pg (25.0-35.0); MCHC 32.6 g/dL (31.0-37.0); MCV 94.5 fL (80.0-100.0); Mean Platelet Volume 7.7; Monocytes # (A) 0.2 k/uL (0-1.0); Monocytes % (A) 4 %; Neutrophils # (A) 3.7 k/uL (1.3-7.7); Neutrophils % (A) 66 %; Platelet Count 271 k/uL (150-450); RBC 4.58 m/uL (3.80-5.40); RDW 12.6 % (11.5-15.5); WBC 5.6 k/uL (3.8-10.6)
--- NOTE | 2023-01-10 11:47 | XR ---
EXAMINATION TYPE: XR chest 2V DATE OF EXAM: 01/10/2023 11:43 AM COMPARISON: Chest radiographs from 07/14/2018 TECHNIQUE: XR chest 2V Frontal and lateral views of the chest. CLINICAL INDICATION:Female, 62 years old with history of Chest Pain; FINDINGS: Lungs/Pleura: There is no evidence of pleural effusion, focal consolidation, or pneumothorax. Pulmonary vascularity: Unremarkable. Heart/mediastinum: Cardiomediastinal silhouette is unremarkable. Musculoskeletal: No acute osseous pathology. Mild degenerative changes of the thoracic spine. Old hea led left seventh rib fracture. IMPRESSION: No acute cardiopulmonary disease/process.
[2023-01-10 11:52] LABS: Partial Thromboplastin Time 23.9 sec (22.0-30.0); Prothrombin Time 10.8 sec (9.0-12.0)
[2023-01-10 12:08] LABS: ALT 19 U/L (4-34); AST 24 U/L (14-36); African American GFR (CKD) >90 (>60 ml/min/1.73 sqM); Albumin 4.4 g/dL (3.5-5.0); Alkaline Phosphatase 69 U/L (38-126); Anion Gap 11 mmol/L; Blood Urea Nitrogen 19 mg/dL (7-17); Calcium 9.1 mg/dL (8.4-10.2); Carbon Dioxide 22 mmol/L (22-30); Chloride 102 mmol/L (98-107); Glucose 107 mg/dL (74-99); Magnesium 1.9 mg/dL (1.6-2.3); Non-African American GFR(CKD) 86 (>60 ml/min/1.73 sqM); Potassium 4.3 mmol/L (3.5-5.1); Sodium 135 mmol/L (137-145); Total Bilirubin 0.4 mg/dL (0.2-1.3); Total Protein 7.3 g/dL (6.3-8.2)
[2023-01-10] MEDS ORDERED: NITROGLYCERIN SL TABS 0.4 MG TAB SUBLINGUAL PRN (13:28)
[2023-01-10] MEDS ORDERED: ASPIRIN 81 MG PO STA (13:28)
[2023-01-10] MEDS: NITROGLYCERIN OINT 1 INCH/GM PACKET TOPICAL SCH (18:48)
[2023-01-10] MEDS ORDERED: ALPRAZolam 0.25 MG TAB PO PRN (21:15)
[2023-01-11] MEDS: NITROGLYCERIN OINT 1 INCH/GM PACKET TOPICAL SCH ×2 (00:20→06:04)
--- NOTE | 2023-01-11 05:29 | HP ---
HISTORY AND PHYSICAL CHIEF COMPLAINT: Chest pain. HISTORY OF PRESENT ILLNESS: This is a 62-year-old woman with a past medical history of multiple medical problems including hypertension, was complaining of chest pain. The patient woke up and had some sharp chest pain in the lateral part of the chest on the left side which was radiating to the axilla, but the patient became more constant, came to the front of the chest. The patient came to [facility]. Patient apparently had done yard work previously recently. There is no history of any fever, rigors, or chills. Initial troponins are negative. The EKG which I reviewed personally showed no acute changes. The patient was admitted for further evaluation and treatment. PAST MEDICAL HISTORY: History of hypertension, rest of the history and chart is also reviewed. HOME MEDICATIONS: Reviewed include metoprolol, dose and rest of medications noted. ALLERGIES: Bactrim. FAMILY HISTORY: Hypertension and stents. SOCIAL HISTORY: Smoking and occasional alcohol intake. REVIEW OF SYSTEMS: A 14-point review is negative as mentioned. PHYSICAL EXAMINATION: VITAL SIGNS: Pulse 61, blood pressure ntd and respirations 16. HEENT: Conjunctivae normal. NECK: No jugular venous distention. RESPIRATIONS: Diminished at the bases. ABDOMEN: Soft, nontender. LEGS: No edema, no swelling. NERVOUS SYSTEM: No focal deficits. JOINTS: No active deforming arthropathy. LABORATORY DATA: Noted. ASSESSMENT: 1. Chest pain, possible unstable angina. 2. Hypertension. 3. Mild hyponatremia. 4. Anxiety. 5. History of nicotine dependence. RECOMMENDATIONS AND DISCUSSION: This 62-year-old woman presented with multiple medical issues, we will monitor the patient closely. We will rule out myocardial infarction. Follow closely with Cardiology and repeat labs, possible stress test. Prognosis guarded. Further recommendations to follow. MMODL / IJN: [id number] / MTDD
[2023-01-11 07:34] VITALS: BP 116/69; PULSE 62; RESP 18; TEMP 98
[2023-01-11] MEDS ORDERED: ASPIRIN 81 MG PO SCH (09:00)
[2023-01-11] MEDS ORDERED: METOPROLOL SUCCINATE (ER) 25 MG TAB.ER.24H PO SCH (09:00)
[2023-01-11] MEDS ORDERED: LORATADINE 10 MG TAB PO SCH (09:00)
[2023-01-11] MEDS ORDERED: ASPIRIN 325 MG TAB PO SCH (09:00)
[2023-01-11] MEDS ORDERED: FLUTICASONE 50MCG/SPRAY NASAL 16GM EA NOSTRIL SCH (09:00)
[2023-01-11] MEDS ORDERED: LOSARTAN 50 MG TAB PO SCH (09:00)
[2023-01-11] MEDS: NICOTINE 14MG/24HR PATCH TRANSDERM SCH ×2 (09:02→09:03)
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
--- NOTE | 2023-01-11 12:39 | DS ---
DISCHARGE SUMMARY FINAL DIAGNOSES: 1. Chest pain, myocardial infarction ruled out versus musculoskeletal pain. 2. Hypertension. 3. Mild hyponatremia. 4. Anxiety. 5. History of nicotine dependence. DISPOSITION: the patient will be discharged after Cardiology clearance. HISTORY OF PRESENT ILLNESS: This 62-year-old woman was admitted with left-sided chest pain radiating to the front, myocardial infarction ruled out. Cardiology saw the patient and recommended 2D echo and outpatient followup. PHYSICAL EXAMINATION: VITAL SIGNS: Stable. CARDIOVASCULAR: S1, S2. ABDOMEN: Soft. The patient was discharged in stable condition. Guarded prognosis. Continue the home medications. Add aspirin. Outpatient followup with Cardiology and follow up with primary physician, which I advised the patient followup and outpatient stress test per Cardiology. MMODL / IJN: [id number] / MTDAlonso
--- NOTE | 2023-01-11 13:30 | CA ---
Transthoracic Echo Report Name: Bernadette Olivo Age: 62 Gender: F : 1960 Exam Date: 01/11/2023 12:11 Exam Location: [facility] Ht (in): 62 Wt (lb): 132 Ordering Physician: Sammi Yarbrough Attending/Referring Phys: [id number], Linnea Wood Last Maker Izabel Dash, OREN Procedure CPT: Indications: chestn pain Cardiac Hx: Technical Quality: Excellent Contrast 1: Total Dose (mL): Contrast 2: Total Dose (mL): MEASUREMENTS (Male / Female) Normal Values 2D ECHO LV Diastolic Diameter PLAX 4.3 cm 4.2 - 5.9 / 3.9 - 5.3 cm LV Systolic Diameter PLAX 2.7 cm IVS Diastolic Thickness 0.9 cm 0.6 - 1.0 / 0.6 - 0.9 cm LVPW Diastolic Thickness 0.9 cm 0.6 - 1.0 / 0.6 - 0.9 cm LV Relative Wall Thickness 0.4 RV Internal Dim ED PLAX 3.2 cm LA Systolic Diameter LX 3.2 cm 3.0 - 4.0 / 2.7 - 3.8 cm LA Volume 33.9 cm??? 18 - 58 / 22 - 52 cm??? M-MODE Aortic Root Diameter MM 2.7 cm MV E Point Septal Separation 0.4 cm AV Cusp Separation MM 2.0 cm DOPPLER AV Peak Velocity 124.4 cm/s AV Peak Gradient 6.2 mmHg MV Area PHT 3.1 cm??? Mitral E Point Velocity 86.3 cm/s Mitral A Point Velocity 81.2 cm/s Mitral E to A Ratio 1.1 MV Deceleration Time 246.1 ms TR Peak Velocity 203.9 cm/s TR Peak Gradient 16.6 mmHg Right Ventricular Systolic Press 21.6 mmHg FINDINGS Left Ventricle Left ventricular ejection fraction is estimated at 55-60%. Left ventricular cavity size normal. Left ventricular wall thickness normal. Normal left ventricular wall motion. Right Ventricle Normal right ventricular size and function. Right ventricular systolic pressure within normal limits. Right Atrium Normal right atrial size. Left Atrium Normal left atrial size. Mitral Valve Structurally normal mitral valve. Mild mitral regurgitation. Aortic Valve Trileaflet aortic valve. No aortic valve stenosis or regurgitation. Tricuspid Valve Structurally normal tricuspid valve. Mild tricuspid regurgitation. Pulmonic Valve Structurally normal pulmonic valve. Trace pulmonic regurgitation. Pericardium Normal pericardium. No pericardial effusion. Aorta Normal size aortic root and proximal ascending aorta. CONCLUSIONS 1. Normal ventricle size and systolic function X 2. Mild mitral and tricuspid regurgitation Previewed by: Dr. Raul Fuentes MD (Electronically Signed) Final Date: 11 Jan 2023 13:30
[2023-01-11] MEDS ORDERED: ATORVASTATIN 20 MG TAB PO SCH (21:00)
== END 2023-01-11 12:52 | disposition home or self-care (01) ==
LOC: EC 10:35 → 6NMEDSUR 13:33
PROVIDERS: ADMIT Internal Medicine; ATTEND Internal Medicine
DX: R07.9 Chest pain, unspecified (principal); I10 Essential (primary) hypertension; E87.1 Hypo-osmolality and hyponatremia; F41.9 Anxiety disorder, unspecified; Z87.440 Personal history of urinary (tract) infections; F17.200 Nicotine dependence, unspecified, uncomplicated; E78.5 Hyperlipidemia, unspecified; Z82.49 Family history of ischemic heart disease and other diseases of the circulatory system; Z79.899 Other long term (current) drug therapy; Z88.2 Allergy status to sulfonamides
CPT/HCPCS: 96374; 99285; 36415; 94760; 93005; 93306; 85379; 80061; 80053; 83735; 84484; 85025; 85610; 85730; 71046; G0378 ×2; J1885

== ENCOUNTER → 2023-02-21 | Outpatient (CLI) | payer SELFPAY ==
[2023-02-21 15:38] LABS: HCT 43.4 % (37.2-46.3); HGB 13.8 d/dL (12.0-15.0); MCH 31.2 pg (27.0-32.0); MCHC 31.8 d/dL (32.0-37.0); Mean Platelet Volume 10.6 FL (9.5-12.2); NRBC Per 100 WBC 0 X 10*3/uL (0.00-0.01); Platelet Count 312 X 10*3/uL (140-440); RBC 4.43 X 10*6/uL (4.10-5.20); RDW 12.9 % (11.5-14.5); WBC 7.75 X 10*3/uL (4.50-10.00)
[2023-02-21 15:59] LABS: Blood Urea Nitrogen 14.7 mg/dL (9.0-27.0); Chloride 105 mmol/L (96-109); Potassium 5.1 mmol/L (3.5-5.5); Sodium 141 mmol/L (135-145)
== END | disposition home or self-care (01) ==
LOC: LABPAT 10:33
PROVIDERS: ATTEND Internal Medicine
DX: Z01.812 Encounter for preprocedural laboratory examination (principal); R06.02 Shortness of breath
CPT/HCPCS: 80051; 82565; 84520; 85027

== ENCOUNTER 2023-03-10 08:57 | Day surgery (SDC) | payer MEDICAID ==
[~2023-03-10 08:57] MED LIST: ALPRAZolam 0.25 MG TAB PO PRN; ALPRAZolam 0.5 MG TAB PO PRN; ASPIRIN 325 MG TAB PO STA; ATORVASTATIN 80 MG TAB PO STA; HEPARIN SODIUM,PORCINE 10,000 UNIT in SODIUM CHLORIDE 0.9% 1,000 ML IRRIGATION PRN; HEPARIN SODIUM,PORCINE 2,500 UNIT in SODIUM CHLORIDE 0.9% 250 ML IRRIGATION PRN; NITROGLYCERIN SL TABS 0.4 MG TAB SUBLINGUAL PRN; SODIUM CHLORIDE 0.9% 1,000 ML in EMPTY BAG 1 BAG IV SCH
[2023-03-10] MEDS ORDERED: SODIUM CHLORIDE 0.9% 1,000 ML IV ONE (09:32)
[2023-03-10 09:40] VITALS: RESP 16; TEMP 98.1
[2023-03-10] MEDS ORDERED: fentaNYL (PF) 50 MCG/ML 2 ML AMP ONE (11:19)
[2023-03-10] MEDS ORDERED: fentaNYL (PF) 50 MCG/ML 2 ML AMP IV ONE (11:24)
[2023-03-10] MEDS: MIDAZOLAM 2 MG/2 ML VIAL IV ONE ×2 (11:25→11:32)
[2023-03-10] MEDS ORDERED: LIDOCAINE 1% INJ 10MG/ML (5 ML VIAL-PF) SQ ONE (11:30)
[2023-03-10] MEDS ORDERED: HEPARIN SODIUM 1,000 UN/ML (10ML VL) IV ONE ×2 (11:33)
[2023-03-10] MEDS ORDERED: IOPAMIDOL-370 100ML BTL INJ ONE (11:46)
--- NOTE | 2023-03-10 13:56 | P.CARDCATH ---
Description of Procedure: PROCEDURES PERFORMED: Left heart catheterization, bilateral coronary angiography, ultrasound guided arterial access, iFR LAD INDICATION: Abnormal stress test, dyspnea on exertion concerning for anginal equivalent CONSENT:I have discussed the risks, benefits and alternative therapies for the above-mentioned procedure and for both sedation/analgesia as well as necessary blood product administration, if indicated, as they pertain to this patient. The patient has indicated understanding and acceptance of the risks and procedures discussed. PROCEDURE: After the risks, benefits and alternatives of the above mentioned procedure explained in detail with the patient, informed consent was obtained. Patient was taken to the catheterization lab and prepped and draped in usual fashion. Ultrasound guidance was used to assess for arterial access. 1% lidocaine was used to anesthetize the right radial artery. A 6-Gambian sheath was placed in the right radial artery using modified Seldinger technique and ultrasound guidance. Left coronary angiography was performed with a 5-Gambian JL 3.5 catheter and right coronary angiography was performed with a 5-Gambian JR5 catheter in various views. A 5-Gambian FR5 catheter was inserted into the left ventricle and pressure measurements were obtained. The decision was made to perform iFR of the LAD. A 0.014 pressure wire was advanced through the diagnostic JL 3.5 catheter and normalize at the left main. It was then advanced 1 cm distal to LAD lesion. iFR was performed and was abno rmal at 0.85. Given more complex area of stenting recommended attempts at optimizing medical therapy before any consideration of intervention and therefore the procedure was completed. The right radial sheath was removed and a TR band was placed with hemostasis achieved. The patient tolerated the procedure well. Patient was transported back to the post catheterization holding area in stable condition. Conscious Sedation: Patient was monitored under the direct supervision of myself for conscious sedation using Versed and fentanyl for a total duration of 20 minutes HEMODYNAMICS: Aorta: 144/78 OV: 139/5, LVEDP 18 SELECTIVE CORONARY ARTERIOGRAPHY: LEFT MAIN: The left main is a large caliber vessel which bifurcates into the LAD and circumflex. There is no significant stenosis. LEFT ANTERIOR DESCENDING CORONARY ARTERY: LAD is a large caliber vessel which wraps around to the apex. There is a "high" diagonal 1 branch which is nearly ramus. The LAD is normal other than a mid LAD 50% stenosis at the level of a small to moderate caliber diagonal 3 branch. Otherwise LAD is normal. LEFT CIRCUMFLEX CORONARY ARTERY: Left circumflex is a moderate caliber vessel without significant stenosis. RIGHT CORONARY ARTERY: The right coronary artery is a large caliber vessel which gives off a PDA and PLV branch and is the dominant vessel. There is no significant stenosis. FINAL IMPRESSION: 1. Relatively normal coronary arteries other than a mid LAD 50% stenosis 2. Abnormal iFR LAD 3. Mildly elevated left sided filling pressures PLAN: 1. Aggressive risk factor modification per most recent ACC/AHA guidelines. 2. iFR of LAD is abnormal in same distribution as abnormal stress echo. Given more complex with bifurcation and appearing more in the 50% range angiographically, would recommend medical therapy and increasing antianginals. If patient having persistent angina may consider PCI.
[2023-03-10] MEDS ORDERED: ACETAMINOPHEN TAB 500 MG TAB PO ONE (14:17)
[2023-03-10 14:54] VITALS: BP 132/66; PULSE 68
== END 2023-03-10 15:30 | disposition home or self-care (01) ==
LOC: CATHCVL 08:57
PROVIDERS: ATTEND Internal Medicine
DX: I25.10 Atherosclerotic heart disease of native coronary artery without angina pectoris (principal); I49.3 Ventricular premature depolarization; I10 Essential (primary) hypertension; E78.2 Mixed hyperlipidemia; F17.210 Nicotine dependence, cigarettes, uncomplicated; Z82.49 Family history of ischemic heart disease and other diseases of the circulatory system; Z88.2 Allergy status to sulfonamides; Z79.82 Long term (current) use of aspirin; Z79.899 Other long term (current) drug therapy
CPT/HCPCS: 93458; 93799; 76937; C1769 ×2; C1894; J2250; J2001; J3010; J1644; Q9967

== ENCOUNTER 2024-02-01 10:41 | Emergency (ER) | payer MEDICAID ==
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
[2024-02-01] MEDS: SODIUM CHLORIDE 0.9% 1,000 ML IV STA (11:27)
[2024-02-01 11:41] LABS: Basophils # (A) 0.1 k/uL (0-0.2); Basophils % (A) 1 %; Eosinophils # (A) 0.2 k/uL (0-0.7); Eosinophils % (A) 3 %; HCT 44.3 % (34.0-46.0); HGB 14.3 gm/dL (11.4-16.0); Lymphocytes # (A) 1.8 k/uL (1.0-4.8); Lymphocytes % (A) 31 %; MCH 30.9 pg (25.0-35.0); MCHC 32.2 g/dL (31.0-37.0); MCV 95.8 fL (80.0-100.0); Mean Platelet Volume 7.5; Monocytes # (A) 0.4 k/uL (0-1.0); Monocytes % (A) 6 %; Neutrophils # (A) 3.3 k/uL (1.3-7.7); Neutrophils % (A) 57 %; Platelet Count 254 k/uL (150-450); RBC 4.62 m/uL (3.80-5.40); RDW 12.7 % (11.5-15.5); WBC 5.9 k/uL (3.8-10.6)
[2024-02-01] MEDS: KETOROLAC 15 MG/ML 1 ML VIAL IVP STA (11:43)
[2024-02-01] MEDS: ONDANSETRON 4 MG/2 ML VIAL IVP STA (11:43)
[2024-02-01 11:55] LABS: ALT 20 U/L (4-34); AST 29 U/L (14-36); African American GFR (CKD) >90 (>60 ml/min/1.73 sqM); Alkaline Phosphatase 94 U/L (38-126); Amylase 70 U/L (30-110); Anion Gap 5 mmol/L; Blood Urea Nitrogen 14 mg/dL (7-17); Carbon Dioxide 24 mmol/L (22-30); Chloride 106 mmol/L (98-107); Glucose 93 mg/dL (74-99); Lipase 124 U/L (23-300); Non-African American GFR(CKD) 86 (>60 ml/min/1.73 sqM); Potassium 4.7 mmol/L (3.5-5.1); Sodium 135 mmol/L (137-145); Total Bilirubin 0.7 mg/dL (0.2-1.3); Total Protein 6.8 g/dL (6.3-8.2)
[2024-02-01 12:01] LABS: Appearance,Urine Clear (Clear); Bacteria,Urine Moderate /hpf; Bilirubin,Urine Negative (Negative); Blood,Urine Negative (Negative); Color,Urine Colorless; Glucose,Urine (UA) Negative (Negative); Ketones,Urine Negative (Negative); Leukocyte Esterase,Urine Small (Negative); Mucus,Urine Rare /hpf; Nitrite,Urine Negative (Negative); PH, Urine 5.5 (5.0-8.0); Protein,Urine Negative (Negative); RBC,Urine <1 /hpf (0-5); Specific Gravity,Urine 1.007 (1.001-1.035); Squamous Epithelial Cell,Urine <1 /hpf (0-4); Urobilinogen,Urine <2.0 mg/dL (<2.0); WBC,Urine 2 /hpf (0-5)
--- NOTE | 2024-02-01 12:34 | CT ---
EXAMINATION TYPE: CT abdomen pelvis wo con DATE OF EXAM: 02/01/2024 COMPARISON: 05/25/2022 INDICATION: right flank pain DLP: 703.2 mGycm, Automated exposure control for dose reduction was used. CONTRAST: 0 mL of Isovue 300. Study performed without Oral Contrast TECHNIQUE: Axial images were obtained from above the diaphragm to the pubic rami in the axial plane a t 5 mm thick sections. Reconstructed images are reviewed on the computer in the coronal plane. FINDINGS: Limited CT sections are obtained the lung bases. The lung bases are clear. CT ABDOMEN: Liver: Normal Spleen: Normal Pancreas: Normal Adrenal glands: The adrenal glands are normal. Gallbladder: Normal Kidneys: No masses are evident. No hydronephrosis is present. No cysts are present. Delayed images were obtained through the kidneys, which remain unremarkable. Extremely subtle right ureterovesical junction stone estimated at 1 mm cannot be excluded. Series 201 image 118. Aorta: Vascular calcification is within the aorta. Inferior vena cava: Normal. CT PELVIS: Loops of bowel within the abdomen and pelvis are normal. There are loops of bowel which are incom pletely distended or lack oral contrast limiting their evaluation. Appendix: Normal as visualized. Urinary bladder: Normal. Genitourinary structures: Uterus is unremarkable. Adnexa are normal. Osseous structures: No suspicious lytic or sclerotic lesions evident. Degenerative disc changes are w ithin the lower lumbar spine with loss of disc height L5-S1. Vertebral body heights are preserved. IMPRESSION: 1. 1 mm right ureterovesical junction stone not excluded. No significant hydronephrosis or hydrouret er.
[2024-02-01] MEDS: MORPHINE SULFATE 4 MG/ML SYRINGE IVP STA (13:02)
[2024-02-01 13:29] VITALS: PULSE 63; RESP 18; TEMP 98.1
--- NOTE | 2024-02-01 14:01 | US ---
EXAMINATION TYPE: US gallbladder DATE OF EXAM: 02/01/2024 COMPARISON: NONE CLINICAL INDICATION: Female, 63 years old with history of ruq pain; RUQ pain TECHNIQUE: Multiple sonographic images of the right upper quadrant are obtained. FINDINGS: EXAM MEASUREMENTS: Liver Length: 12.2 cm Gallbladder Wall: .2 cm CBD: .3 cm Right Kidney: 9.2 x 3.9 x 4.8 cm MEDICAL DOSIMETRIST NOTES: Pancreas: Tail obscured by overlying bowel gas Liver: Increased attenuation Gallbladder: No stones seen Evidence for sonographic Carrillo's sign: No CBD: wnl Right Kidney: Echogenic area seen lower pole. No shadowing evident. No hydronephrosis present IMPRESSION: 1. Nonshadowing renal stone right kidney may be present. 2. No acute ultrasound abnormality otherwise apparent.
[2024-02-01 15:12] VITALS: BP 154/79
== END 2024-02-01 14:00 | disposition home or self-care (01) ==
LOC: EC 10:41
DX: N20.0 Calculus of kidney (principal); F17.200 Nicotine dependence, unspecified, uncomplicated; Z88.1 Allergy status to other antibiotic agents; Z88.2 Allergy status to sulfonamides
CPT/HCPCS: 36415; 80053; 82150; 83690; 85025; 81001; 76705; 74176; 99284; 96374; 96375 ×2; 96361; J2270; J2405; J1885

== ENCOUNTER 2024-09-28 11:49 | Emergency (ER) | payer BC, MEDICAID ==
[2024-09-28 11:55] VITALS: TEMP 97.5
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
[2024-09-28] MEDS: KETOROLAC 15 MG/ML 1 ML VIAL IVP STA ×2 (12:49→16:30)
[2024-09-28] MEDS: HYDROmorphone 1 MG/ML 1 ML SYRINGE IVP STA (12:49)
[2024-09-28] MEDS: ONDANSETRON 4 MG/2 ML VIAL IVP STA (12:49)
[2024-09-28] MEDS: SODIUM CHLORIDE 0.9% 1,000 ML IV STA ×2 (12:54→16:29)
[2024-09-28 12:59] LABS: Basophils # (A) 0.1 k/uL (0-0.2); Basophils % (A) 1 %; Eosinophils # (A) 0.1 k/uL (0-0.7); Eosinophils % (A) 1 %; HCT 47.3 % (34.0-46.0); HGB 15.4 gm/dL (11.4-16.0); Lymphocytes # (A) 1.9 k/uL (1.0-4.8); Lymphocytes % (A) 18 %; MCH 30.7 pg (25.0-35.0); MCHC 32.6 g/dL (31.0-37.0); MCV 94.2 fL (80.0-100.0); Mean Platelet Volume 7.5; Monocytes # (A) 0.5 k/uL (0-1.0); Monocytes % (A) 4 %; Neutrophils # (A) 7.6 k/uL (1.3-7.7); Neutrophils % (A) 75 %; Platelet Count 259 k/uL (150-450); RBC 5.02 m/uL (3.80-5.40); RDW 12.6 % (11.5-15.5); WBC 10.2 k/uL (3.8-10.6)
[2024-09-28 13:06] LABS: Appearance,Urine Clear (Clear); Bilirubin,Urine Negative (Negative); Color,Urine Yellow; Glucose,Urine (UA) Negative (Negative); Ketones,Urine Negative (Negative); PH, Urine 5.5 (5.0-8.0); Protein,Urine Negative (Negative); Specific Gravity,Urine 1.023 (1.001-1.035)
[2024-09-28 13:07] LABS: Bacteria,Urine Rare /hpf; Blood,Urine Small (Negative); Leukocyte Esterase,Urine Moderate (Negative); Mucus,Urine Few /hpf; Nitrite,Urine Negative (Negative); RBC,Urine 3 /hpf (0-5); Squamous Epithelial Cell,Urine 5 /hpf (0-4); Urobilinogen,Urine <2.0 mg/dL (<2.0); WBC,Urine 8 /hpf (0-5)
[2024-09-28 13:18] LABS: ALT 17 U/L (4-34); AST 21 U/L (14-36); African American GFR (CKD) >90 (>60 ml/min/1.73 sqM); Albumin 4.6 g/dL (3.5-5.0); Alkaline Phosphatase 85 U/L (38-126); Amylase 72 U/L (30-110); Anion Gap 8 mmol/L; Blood Urea Nitrogen 12 mg/dL (7-17); Calcium 10.1 mg/dL (8.4-10.2); Carbon Dioxide 29 mmol/L (22-30); Chloride 101 mmol/L (98-107); Glucose 98 mg/dL (74-99); Lipase 136 U/L (23-300); Non-African American GFR(CKD) 82 (>60 ml/min/1.73 sqM); Potassium 4.1 mmol/L (3.5-5.1); Sodium 138 mmol/L (137-145); Total Bilirubin 0.7 mg/dL (0.2-1.3); Total Protein 7.3 g/dL (6.3-8.2)
--- NOTE | 2024-09-28 15:10 | CT ---
EXAMINATION TYPE: CT abdomen pelvis w con DATE OF EXAM: 09/28/2024 2:39 PM COMPARISON: None. CLINICAL INDICATION: Female, 64 years old with history of Right flank pain, RT flank pain TECHNIQUE: Axial images were obtained from above the diaphragm to the pubic rami in the axial plane a t 5 mm thick sections. Reconstructed images are reviewed on the computer in the coronal plane. CONTRAST: 100 mL of Isovue 300. Study performed without Oral Contrast DLP: 700.6 mGycm, Automated exposure control for dose reduction was used. FINDINGS: Limited CT sections are obtained the lung bases. Very minimal subsegmental atelectasis may be presen t within the lung bases.. CT ABDOMEN: Liver: Normal Spleen: Normal Pancreas: Normal Adrenal glands: The adrenal glands are normal. Gallbladder: Normal Kidneys: No masses are evident. No hydronephrosis is present. Couple of tiny cortical renal cysts a re present. No renal or ureteral stones evident. Delayed images appear unremarkable. Aorta: Vascular calcification is within the aorta. Inferior vena cava: Normal. CT PELVIS: Loops of bowel within the abdomen and pelvis are normal. This study is without oral contrast limi ting bowel evaluation. Appendix: Not identified. No dilated tubular structure or inflammatory changes evident. Urinary bladder: Normal. Genitourinary structures: Uterus is normal. Adnexa are unremarkable. Osseous structures: No suspicious lytic or sclerotic lesions. IMPRESSION: 1. No suspicious abnormality to account for right flank pain. 2. Clinical management of any suspect appendicitis. Appendix is not identified. [facility], , 09/28/2024 3:08 PM
[2024-09-28] MEDS: ACET/COD 300 MG/30 MG STARTER PACK 6 TAB BTL PO STA (16:24)
[2024-09-28] MEDS: ONDANSETRON 4 MG ODT STARTER PACK 2 TAB BTL PO STA (16:25)
[2024-09-28] MEDS: cefTRIAXone IN SWFI 1,000 MG/10 ML SYRINGE IVP STA (16:25)
[2024-09-28] MEDS: HYDROmorphone 0.5 MG/0.5 ML SYRINGE IVP STA (16:29)
[2024-09-28 16:35] VITALS: BP 163/94; PULSE 78; RESP 16
== END 2024-09-28 16:41 | disposition home or self-care (01) ==
LOC: EC 11:49
DX: N12 Tubulo-interstitial nephritis, not specified as acute or chronic (principal); N39.0 Urinary tract infection, site not specified; F17.200 Nicotine dependence, unspecified, uncomplicated; Z88.1 Allergy status to other antibiotic agents; Z88.2 Allergy status to sulfonamides
CPT/HCPCS: 36415; 80053; 82150; 83690; 85025; 81001; 74177; 99284; 96374; 96361 ×4; 96375 ×4; 96376; J2405; J0696; J1171; J1885; S0119; Q9967